=== PATIENT | male | born 1950 | race Caucasian/White ===

== ENCOUNTER 2017-10-22 08:06 | Outpatient (CLI) | payer OTHER | END 2017-10-22 10:40 | disposition home or self-care (01) | LOC: NUCLEAR 08:06 | DX: I34.0 Nonrheumatic mitral (valve) insufficiency (principal) ==

== ENCOUNTER → 2018-10-21 | Outpatient (CLI) | payer OTHER | END | disposition home or self-care (01) | LOC: NUCLEAR 11:00 | DX: I20.9 Angina pectoris, unspecified (principal) ==